=== PATIENT | female | born 1935 | race Caucasian/White ===

== ENCOUNTER → 2016-05-19 | Outpatient (CLI) | payer MEDICARE, OTHER ==
[~2016-05-19] MED LIST: AML5T PO; LOSA100T26 PO; SIMV10TA84 PO
[2016-05-19 12:32] LABS: Urine Bilirubin Negative (Negative); Urine Blood Negative /uL (Negative); Urine Color Yellow (Yellow); Urine Glucose Normal (Normal); Urine Ketone Negative (Negative); Urine Nitrite Negative (Negative); Urine Urobilinogen Normal (Negative)
[2016-05-19 12:34] LABS: Basophils # (auto) 0 uL; Basophils % (auto) 0.7 % (0.0-2.0); Eosinophils # (auto) 0.3 uL; Eosinophils % (auto) 5.2 % (0.0-7.0); Hematocrit 42.5 % (36.0-46.0); Hemoglobin 13.9 g/dL (12.2-16.2); Lymphocytes # (auto) 2.3 uL; Lymphocytes % (auto) 34.1 % (10.0-50.0); Mean Corpuscular Hemoglobin 29.1 pg (28.0-32.0); Mean Corpuscular Hgb Conc. 32.6 g/dL (32.0-36.0); Mean Corpuscular Volume 89.2 fL (80.0-100.0); Mean Platelet Volume 8.5 fL (7.4-10.4); Monocytes # (auto) 0.4 uL; Monocytes % (auto) 6.7 % (0.0-12.0); Neutrophils # (auto) 3.5 uL; Neutrophils % (auto) 53.3 % (37.0-80.0); Platelet Count (auto) 300 10^3/uL (140-450); Red Cell Distribution Width 12.4 % (11.6-16.0); White Blood Cell 6.6 10^3/uL (4.4-10.8)
[2016-05-19 14:02] LABS: Albumin 3.9 g/dL (3.4-5.0); BUN/Creatinine Ratio 19.1; Bilirubin, Direct 0.2 mg/dL (0-0.2); Bilirubin, Total 0.7 mg/dL (0.2-1.0); Calcium 9.1 mg/dL (8.5-10.1); Potassium 3.9 mmol/L (3.5-5.1); Total Protein 7.7 g/dL (6.4-8.2)
[2016-05-19 15:43] LABS: Cholesterol 157 mg/dL (<200); HDL Cholesterol 95 mg/dL (40-59); LDL Cholesterol 69 mg/dL (<100); Triglycerides 91 mg/dL (<150)
== END | disposition home or self-care (01) ==
LOC: LAB 07:53
PROVIDERS: ATTEND Internal Medicine Cardiovascular Disease
DX: I10 Essential (primary) hypertension (principal); E78.00 Pure hypercholesterolemia, unspecified; K74.1 Hepatic sclerosis; E03.9 Hypothyroidism, unspecified; D64.9 Anemia, unspecified; E55.9 Vitamin D deficiency, unspecified; N39.0 Urinary tract infection, site not specified; E11.9 Type 2 diabetes mellitus without complications
CPT/HCPCS: 36415; 80048; 80061; 80076; 81003; 82306; 83036; 84443; 85025

== ENCOUNTER → 2016-06-06 | Outpatient (CLI) | payer MEDICARE ==
[~2016-06-06] MED LIST changes: +IOHEXOL 350 MG/ML 100ML IJ ONE
[2016-06-06 12:00] VITALS: BP 136/68
[2016-06-06 12:30] VITALS: BP 146/64
== END | disposition home or self-care (01) ==
LOC: Rad HDHVI 11:51
PROVIDERS: ATTEND Internal Medicine Cardiovascular Disease
DX: I65.22 Occlusion and stenosis of left carotid artery (principal); M48.02 Spinal stenosis, cervical region; E04.1 Nontoxic single thyroid nodule; I65.21 Occlusion and stenosis of right carotid artery; I25.10 Atherosclerotic heart disease of native coronary artery without angina pectoris; I10 Essential (primary) hypertension; I49.5 Sick sinus syndrome; R42 Dizziness and giddiness; R51 Headache
CPT/HCPCS: 70496; 70498; G0463; Q9967

== ENCOUNTER → 2016-07-19 | Outpatient (CLI) | payer MEDICARE ==
[~2016-07-19] MED LIST changes: -IOHEXOL 350 MG/ML 100ML IJ ONE
== END | disposition home or self-care (01) ==
LOC: Rad HDHVI 08:29
PROVIDERS: ATTEND Internal Medicine Cardiovascular Disease
DX: I25.5 Ischemic cardiomyopathy (principal)
CPT/HCPCS: 93306

== ENCOUNTER → 2016-08-09 | Outpatient (CLI) | payer MEDICARE ==
[~2016-08-09] MED LIST changes: +ADENOSINE 62 MG in GIVE UN-DILUTED 0 ML IV ONE; +ADENOSINE 90 MG/30 ML INJ IV ONE
== END | disposition home or self-care (01) ==
LOC: Rad HDHVI 07:41
PROVIDERS: ATTEND Internal Medicine Cardiovascular Disease
DX: I10 Essential (primary) hypertension (principal); E78.00 Pure hypercholesterolemia, unspecified; E11.9 Type 2 diabetes mellitus without complications; Z95.0 Presence of cardiac pacemaker; Z95.1 Presence of aortocoronary bypass graft
CPT/HCPCS: 78452; 93005; 96374; 96375; A9500; J0153

== ENCOUNTER 2017-10-26 09:31 | Day surgery (SDC) | payer MEDICARE, BC ==
[~2017-10-26] VITALS: Ht 170.2 cm; Wt 74.4 kg
[~2017-10-26 09:31] MED LIST changes: -ADENOSINE 62 MG in GIVE UN-DILUTED 0 ML IV ONE; -ADENOSINE 90 MG/30 ML INJ IV ONE; -AML5T PO; +CYAN1TAB14 PO; +DOCU-80 PO; +FISH1CAP6 PO; -LOSA100T26 PO; +LOSA100T33 PO; +OME20T PO; +TRIA0.5C10 TOP
[2017-10-26] MEDS ORDERED: IOHEXOL 350 MG/ML 100ML IJ ONE (11:23)
[2017-10-26] MEDS ORDERED: LIDOCAINE 2% (LOCAL ANESTH.) PF 5ml SDV ONE (11:23)
[2017-10-26] MEDS ORDERED: MIDAZOLAM HCL 1MG/1ML-2 ML VIAL ONE (11:43)
[2017-10-26] MEDS ORDERED: fentaNYL CITRATE 100 MCG/2 ML VL ONE (11:43)
[2017-10-26] MEDS ORDERED: SODIUM CHL 0.9% 0 ML ONE (11:43)
[2017-10-26] MEDS ORDERED: ANGIOMAX 250 MG VIAL IV ONE (11:43)
== END 2017-10-26 14:55 | disposition home or self-care (01) ==
LOC: CATH 09:31
PROVIDERS: ATTEND Internal Medicine Cardiovascular Disease
DX: I25.10 Atherosclerotic heart disease of native coronary artery without angina pectoris (principal); R94.39 Abnormal result of other cardiovascular function study; I10 Essential (primary) hypertension; E78.5 Hyperlipidemia, unspecified; E03.9 Hypothyroidism, unspecified; D64.9 Anemia, unspecified; E11.9 Type 2 diabetes mellitus without complications; I70.0 Atherosclerosis of aorta; F10.99 Alcohol use, unspecified with unspecified alcohol-induced disorder; Z95.1 Presence of aortocoronary bypass graft; Z90.710 Acquired absence of both cervix and uterus; Z79.899 Other long term (current) drug therapy; Z88.0 Allergy status to penicillin; Z72.89 Other problems related to lifestyle; Z83.3 Family history of diabetes mellitus; Z82.61 Family history of arthritis; Z82.3 Family history of stroke; Z82.49 Family history of ischemic heart disease and other diseases of the circulatory system; Z95.0 Presence of cardiac pacemaker
CPT/HCPCS: 93459; C1760; C1894; J1644; J2250; J3010; J7030; Q9967; 99152; A6257; J2001

== ENCOUNTER 2018-04-03 10:35 | Inpatient (IN) | payer MEDICARE, BC | END 2018-04-07 13:35 | disposition home or self-care (01) | LOC: ER 10:35 → EAST 04-04 09:57 → OVERFLOW 22:05 | DX: K37 Unspecified appendicitis (principal); K65.4 Sclerosing mesenteritis; Q43.8 Other specified congenital malformations of intestine; K63.89 Other specified diseases of intestine ==

== ENCOUNTER → 2018-04-25 | Outpatient (CLI) | payer MEDICARE, BC ==
[~2018-04-25] MED LIST changes: -DOCU-80 PO; +IOHEXOL 350 MG/ML 100ML IJ ONE; -LOSA100T33 PO; -OME20T PO; +POLY335015 PO; +PSYL48.56 PO; +SIMV-13 PO; -SIMV10TA84 PO; -TRIA0.5C10 TOP
[2018-04-25 14:08] VITALS: BP 147/62
--- NOTE | 2018-04-25 14:08 | NUR ---
CHF PT TO CHF CLINIC FOR IV INSERT FOR CT ABD PELVIS DUE TO DIAPHRAGMATIC PRESSURE PAIN.
--- NOTE | 2018-04-25 14:15 | NUR ---
CHF IV insertion IV access obtained, via clean sterile technique by inserting 22 gauge catheter at after attempt(s). IV secured properly. No trauma to site. Patient tolerated procedure well.
[2018-04-25 15:29] VITALS: BP 166/65
--- NOTE | 2018-04-25 15:30 | NUR ---
CHF IV removal IV DC'd with sterile technique, catheter fully intact. Pressure dressing applied to site. Patient tolerated procedure well. INCREASE WATER INTAKE TODAY TO AID IN CONTRAST CLEARANCE. Discharged with aftercare instructions per MD. NOTE:
== END | disposition home or self-care (01) ==
LOC: Rad HDHVI 13:52
PROVIDERS: ATTEND Internal Medicine Cardiovascular Disease
DX: R10.9 Unspecified abdominal pain (principal); Z90.49 Acquired absence of other specified parts of digestive tract
CPT/HCPCS: 74177; 82565; G0463; Q9967

== ENCOUNTER → 2018-05-22 | Outpatient (CLI) | payer MEDICARE, BC ==
[~2018-05-22] MED LIST changes: -IOHEXOL 350 MG/ML 100ML IJ ONE
[2018-05-22 12:45] LABS: Basophils # (auto) 0.1 uL; Basophils % (auto) 0.8 % (0.0-2.0); Eosinophils # (auto) 0.1 uL; Eosinophils % (auto) 1.8 % (0.0-7.0); Hematocrit 46.9 % (36.0-46.0); Hemoglobin 15.5 g/dL (12.2-16.2); Lymphocytes % (auto) 25.9 % (10.0-50.0); Mean Corpuscular Hemoglobin 30.2 pg (28.0-32.0); Mean Corpuscular Volume 91.4 fL (80.0-100.0); Monocytes # (auto) 0.7 uL; Monocytes % (auto) 8.4 % (0.0-12.0); Neutrophils # (auto) 4.9 uL; Neutrophils % (auto) 63.1 % (37.0-80.0); Nucleated Red Blood Cells % 0.1 %; Platelet Count (auto) 245 10^3/uL (140-450); Red Blood Cells 5.13 10^6/uL (4.0-5.20); Red Cell Distribution Width 13.5 % (11.8-14.3); White Blood Cell 7.7 10^3/uL (4.4-10.8)
[2018-05-22 12:47] LABS: Urine Blood Negative /uL (Negative); Urine Specific Gravity 1.013 (1.001-1.035)
[2018-05-22 13:11] LABS: Potassium 4.2 mmol/L (3.5-5.1)
[2018-05-22 13:21] LABS: Albumin 3.9 g/dL (3.4-5.0); BUN/Creatinine Ratio 15.5; Bilirubin, Total 0.8 mg/dL (0.2-1.0); Calcium 8.9 mg/dL (8.5-10.1); Total Protein 7.6 g/dL (6.4-8.2)
[2018-05-22 13:22] LABS: Free T4 (Free Thyroxine) 1.24 ng/dL (0.89-1.76)
== END | disposition home or self-care (01) ==
LOC: LAB 07:57
PROVIDERS: ATTEND Internal Medicine Cardiovascular Disease
DX: N39.0 Urinary tract infection, site not specified (principal); E03.9 Hypothyroidism, unspecified; E11.9 Type 2 diabetes mellitus without complications; E55.9 Vitamin D deficiency, unspecified; D51.9 Vitamin B12 deficiency anemia, unspecified
CPT/HCPCS: 36415; 80053; 80061; 81003; 82306; 82607; 83036; 84439; 84443; 85025; 87086

== ENCOUNTER → 2018-10-03 | Outpatient (CLI) | payer MEDICARE, BC | END | disposition home or self-care (01) | LOC: Rad HDHVI 08:57 | PROVIDERS: ATTEND Internal Medicine Cardiovascular Disease | DX: J32.9 Chronic sinusitis, unspecified (principal); R51 Headache | CPT/HCPCS: 70450; 70486 ==

== ENCOUNTER → 2018-10-25 | Outpatient (CLI) | payer MEDICARE, BC ==
[~2018-10-25] VITALS: Ht 170.2 cm; Wt 71.2 kg
[~2018-10-25] MED LIST changes: +ADENOSINE 60 MG in GIVE UN-DILUTED 0 ML IV ONE; +ADENOSINE 90 MG/30 ML INJ IV ONE
== END | disposition home or self-care (01) ==
LOC: Rad HDHVI 09:17
PROVIDERS: ATTEND Internal Medicine Cardiovascular Disease
DX: G43.909 Migraine, unspecified, not intractable, without status migrainosus (principal); I25.10 Atherosclerotic heart disease of native coronary artery without angina pectoris; G45.9 Transient cerebral ischemic attack, unspecified; H93.19 Tinnitus, unspecified ear; Z95.1 Presence of aortocoronary bypass graft
CPT/HCPCS: 78452; 93005; 96374; 96375; A9500; J0153

== ENCOUNTER → 2019-05-20 | Outpatient (CLI) | payer MEDICARE, BC ==
[~2019-05-20] MED LIST changes: -ADENOSINE 60 MG in GIVE UN-DILUTED 0 ML IV ONE; -ADENOSINE 90 MG/30 ML INJ IV ONE; +MVI in SODIUM CHLORIDE 0.9% 1,010 ML ONE; +MVI in SODIUM CHLORIDE 0.9% 500 ML IVB ONE
[2019-05-20 11:30] VITALS: BP 138/72
--- NOTE | 2019-05-20 11:30 | NUR ---
CHF PT ARRIVED FROM BACK OFFICE WITH ORDERS TO TRANSFUSE MVI. PT A/O X 4 0 DISTRESS VSS
--- NOTE | 2019-05-20 11:50 | NUR ---
IV insertion IV access obtained, via clean sterile technique by inserting 22 gauge catheter at after attempt(s). IV secured properly. No trauma to site. Patient tolerated procedure well.
--- NOTE | 2019-05-20 14:20 | NUR ---
IV removal IV DC'd with sterile technique, catheter fully intact. Pressure dressing applied to site. Patient tolerated procedure well. Discharged with aftercare instructions per MD. NOTE:
[2019-05-20 14:23] VITALS: BP 158/74
--- NOTE | 2019-05-20 14:23 | NUR ---
Discharge Instructions See e-MAR for any mediations given with this visit. Patient education given on disease process. Patient verbalized understanding. Previous labs reviewed. Patient discharged in stable condition with after care instructions and follow up appointment. MEDICATIONS MVI IV X [id number]
--- NOTE | 2019-05-21 17:21 | NUR ---
PT CALLED NOT FEELING WELL, BELIEVES SHE IS STILL FEELING FATIGUED SOME PAIN IN ABDOMEN AND LIGHT NAUSEA. HAD PT TAKE BLOOD PRESSURE, STATES 211/105 AND 206/100. PT HAS NO BLOOD PRESSURE MEDICATIONS AT HOME OR ANXIETY MEDICATIONS. ADVISED AND PT TO CHANGE BATTERIES IN BP CUFF AND IF PRESSURES ARE STILL HIGH TO GO TO THE EMERGENCY ROOM. RELUCTANT TO GO TO EMERGENCY ROOM BECAUSE OF ALL THE SICK PEOPLE ADVISED TO GO TO FIRE DEPARTMENT THAT IS CLOSE BY IF HE DOES NOT WANT TO GO TO ER. FOLLOW UP IN AM IN CHF CLINIC AT 830. MIMI VERBALIZED UNDERSTANDING
== END | disposition home or self-care (01) ==
LOC: CHF HDHVI 11:32
PROVIDERS: ATTEND Internal Medicine Cardiovascular Disease
DX: E86.0 Dehydration (principal); R53.83 Other fatigue; R06.02 Shortness of breath; Z79.899 Other long term (current) drug therapy
CPT/HCPCS: 96365; 96366; G0463; J3411; J3475

== ENCOUNTER → 2019-05-22 | Outpatient (CLI) | payer MEDICARE, BC ==
[2019-05-22] VITALS (7 sets, daily range): BP systolic 122–161; BP diastolic 55–73
--- NOTE | 2019-05-22 08:30 | NUR ---
PATIENT IN CLINIC FOR FATIGUE AND SOB. PATIENT CALLED YESTERDAY ABOUT HIGH BLOOD PRESSURES, CHECKED BP ON ARRIVAL, BP WNL.
--- NOTE | 2019-05-22 09:00 | NUR ---
IV insertion IV access obtained, via clean sterile technique by inserting 22 gauge catheter at RFA after 2 attempt(s). IV secured properly. No trauma to site. Patient tolerated procedure well.
--- NOTE | 2019-05-22 09:30 | NUR ---
WAITING FOR PHARMACY TO DELIVER MVI.
[2019-05-22 10:24] LABS: Basophils # (auto) 0.1 uL; Basophils % (auto) 0.8 % (0.0-2.0); Eosinophils # (auto) 0.1 uL; Eosinophils % (auto) 1.3 % (0.0-7.0); Hematocrit 45.6 % (36.0-46.0); Hemoglobin 15.3 g/dL (12.2-16.2); Lymphocytes # (auto) 1.3 uL; Lymphocytes % (auto) 18.4 % (10.0-50.0); Mean Corpuscular Hemoglobin 29.8 pg (28.0-32.0); Mean Corpuscular Hgb Conc. 33.6 g/dL (32.0-36.0); Mean Corpuscular Volume 88.7 fL (80.0-100.0); Monocytes # (auto) 0.5 uL; Monocytes % (auto) 7.5 % (0.0-12.0); Neutrophils # (auto) 5.1 uL; Platelet Count (auto) 233 10^3/uL (140-450); Red Blood Cells 5.14 10^6/uL (4.0-5.20); Red Cell Distribution Width 13.2 % (11.8-14.3); White Blood Cell 7.1 10^3/uL (4.4-10.8)
[2019-05-22 11:49] LABS: BUN/Creatinine Ratio 12.7; Calcium 9.2 mg/dL (8.5-10.1); Magnesium 2.4 mg/dL (1.6-2.6); Potassium 4.1 mmol/L (3.5-5.1)
--- NOTE | 2019-05-22 13:30 | NUR ---
CHF CLINIC Discharge Instructions See e-MAR for any mediations given with this visit. Patient education given on disease process. Patient verbalized understanding. Previous labs reviewed. Patient discharged in stable condition with after care instructions and follow up appointment. NOTE MVI [id number] ADMIN BY DANIA TRINIDAD. BLOOD DRAWN DURING IV START AND RESULTS REVIEWED WITH PATIENT.
== END | disposition home or self-care (01) ==
LOC: CHF HDHVI 08:45
PROVIDERS: ATTEND Internal Medicine Cardiovascular Disease
DX: R53.83 Other fatigue (principal); R53.1 Weakness; K90.9 Intestinal malabsorption, unspecified; D64.9 Anemia, unspecified; R06.02 Shortness of breath; Z79.899 Other long term (current) drug therapy
CPT/HCPCS: 36415; 80048; 82306; 82607; 83036; 83735; 85025; 96365; 96366; G0463; J3411; J3475

== ENCOUNTER → 2019-07-29 | Outpatient (CLI) | payer MEDICARE, BC ==
[~2019-07-29] MED LIST changes: -MVI in SODIUM CHLORIDE 0.9% 1,010 ML ONE; -MVI in SODIUM CHLORIDE 0.9% 500 ML IVB ONE
== END | disposition home or self-care (01) ==
LOC: Rad HDHVI 09:02
PROVIDERS: ATTEND Internal Medicine Cardiovascular Disease
DX: R60.0 Localized edema (principal)
CPT/HCPCS: 93925; 93970

== ENCOUNTER → 2019-10-14 | Outpatient (CLI) | payer MEDICARE, BC | END | disposition home or self-care (01) | LOC: LAB 08:44 | PROVIDERS: ATTEND Internal Medicine Cardiovascular Disease | DX: R94.4 Abnormal results of kidney function studies (principal) | CPT/HCPCS: 36415; 82565 ==

== ENCOUNTER → 2019-10-15 | Outpatient (CLI) | payer MEDICARE, BC ==
[~2019-10-15] MED LIST changes: +IOHEXOL 350 MG/ML 100ML IJ ONE
[2019-10-15 09:10] VITALS: BP 138/67
[2019-10-15 09:39] VITALS: BP 135/61
== END | disposition home or self-care (01) ==
LOC: Rad HDHVI 08:57
PROVIDERS: ATTEND Internal Medicine Cardiovascular Disease
DX: I25.9 Chronic ischemic heart disease, unspecified (principal); R51 Headache
CPT/HCPCS: 70450; G0463; Q9967

== ENCOUNTER → 2019-11-06 | Outpatient (CLI) | payer MEDICARE, BC ==
[2019-11-06 15:15] VITALS: BP 149/70
--- NOTE | 2019-11-06 15:15 | NUR ---
CLINIC PT ARRIVED TO THE CHF CLINIC FOR LABS AND CT HEAD /SOFT TISSUE NECK. C/O HEADACHE AND HEAD PRESSURE. A/OX4, AMBULATORY. BREATHING IS EVEN AND UNLABORED.
--- NOTE | 2019-11-06 15:20 | NUR ---
IV insertion IV access obtained, via clean sterile technique by inserting 20 gauge catheter at RAC after 1 attempt(s). IV secured properly. No trauma to site. Patient tolerated procedure well. LABS DRAWN AND SENT NOTE INSERTED BY JUANJO TRINIDAD
[2019-11-06 15:52] VITALS: BP 149/70
--- NOTE | 2019-11-06 16:06 | NUR ---
IV removal IV DC'd with sterile technique, catheter fully intact. Pressure dressing applied to site. Patient tolerated procedure well. Discharged with aftercare instructions per MD. NOTE: REMOVED BY DANIA TRINIDAD
[2019-11-06 16:10] VITALS: BP 154/66
--- NOTE | 2019-11-06 16:10 | NUR ---
Discharge Instructions See e-MAR for any mediations given with this visit. Patient education given on disease process. Patient verbalized understanding. Previous labs reviewed. Patient discharged in stable condition with after care instructions and follow up appointment.
== END | disposition home or self-care (01) ==
LOC: Rad HDHVI 14:58
PROVIDERS: ATTEND Internal Medicine Cardiovascular Disease
DX: M47.812 Spondylosis without myelopathy or radiculopathy, cervical region (principal); M48.02 Spinal stenosis, cervical region; I65.23 Occlusion and stenosis of bilateral carotid arteries; E04.1 Nontoxic single thyroid nodule; M25.78 Osteophyte, vertebrae; R94.4 Abnormal results of kidney function studies
CPT/HCPCS: 36415; 70491; 82565; G0463; Q9967

== ENCOUNTER → 2019-12-23 | Outpatient (CLI) | payer MEDICARE, BC ==
[~2019-12-23] MED LIST changes: -IOHEXOL 350 MG/ML 100ML IJ ONE
== END | disposition home or self-care (01) ==
LOC: Rad HDHVI 13:19
PROVIDERS: ATTEND Internal Medicine Cardiovascular Disease
DX: M16.12 Unilateral primary osteoarthritis, left hip (principal); M48.061 Spinal stenosis, lumbar region without neurogenic claudication; M79.605 Pain in left leg; M47.816 Spondylosis without myelopathy or radiculopathy, lumbar region; M25.78 Osteophyte, vertebrae; M25.552 Pain in left hip
CPT/HCPCS: 72131; 73700

== ENCOUNTER 2020-01-30 11:21 | Emergency (ER) | payer MEDICARE, OTHER ==
[~2020-01-30] VITALS: Ht 172.7 cm; Wt 63.5 kg
[2020-01-30] MEDS ORDERED: SODIUM CHLORIDE 0.9% 1,000 ML IV ONE (11:45)
[2020-01-30 12:12] LABS: Basophils # (auto) 0 10 ^3/uL (0-0.2); Basophils % (auto) 0.3 % (0.0-2.0); Eosinophils # (auto) 0.1 10 ^3/uL (0-0.8); Eosinophils % (auto) 0.5 % (0.0-7.0); Hematocrit 45.6 % (36.0-46.0); Hemoglobin 15.7 g/dL (12.2-16.2); Lymphocytes # (auto) 0.9 10 ^3/uL (0.4-5.4); Lymphocytes % (auto) 8.3 % (10.0-50.0); Mean Corpuscular Hemoglobin 30.3 pg (28.0-32.0); Mean Corpuscular Hgb Conc. 34.4 g/dL (32.0-36.0); Mean Corpuscular Volume 88.1 fL (80.0-100.0); Monocytes # (auto) 0.5 10 ^3/uL (0-1.3); Monocytes % (auto) 4.8 % (0.0-12.0); Neutrophils # (auto) 9.7 10 ^3/uL (1.6-8.6); Neutrophils % (auto) 86.1 % (37.0-80.0); Platelet Count (auto) 224 10^3/uL (140-450); Red Blood Cells 5.18 10^6/uL (4.0-5.20); Red Cell Distribution Width 12.8 % (11.8-14.3); White Blood Cell 11.3 10^3/uL (4.4-10.8)
[2020-01-30 12:24] LABS: Albumin 4.4 g/dL (3.4-5.0); Anion Gap 7 (5-15); Blood Urea Nitrogen 26 mg/dL (7-18); Calcium 9.1 mg/dL (8.5-10.1); Carbon Dioxide 26 mmol/L (21-32); Chloride 101 mmol/L (98-107); Glucose 139 mg/dL (74-106); Potassium 4.3 mmol/L (3.5-5.1); Sodium 134 mmol/L (136-145)
[2020-01-30 12:31] LABS: Alanine Aminotransferase 22 U/L (13-56); Alkaline Phosphatase 99 U/L (45-117); Aspartate Aminotransferase 16 U/L (15-37); BUN/Creatinine Ratio 21.5; Bilirubin, Total 0.8 mg/dL (0.2-1.0); GFR African American 55 mL/min; GFR Non-African American 45 mL/min; Total Protein 7.8 g/dL (6.4-8.2)
[2020-01-30 18:46] VITALS: BP 168/76
[2020-01-30 19:00] LABS: Urine Bacteria FEW /hpf (None Seen); Urine Blood Negative /uL (Negative); Urine Specific Gravity 1.006 (1.001-1.035); Urine WBC 1 /hpf (0 - 5)
== END 2020-01-30 18:54 | disposition home or self-care (01) ==
LOC: EDBD 11:21 → ER 11:21
DX: R55 Syncope and collapse (principal); N39.0 Urinary tract infection, site not specified; E78.5 Hyperlipidemia, unspecified; I10 Essential (primary) hypertension; Z88.0 Allergy status to penicillin; Z95.1 Presence of aortocoronary bypass graft
CPT/HCPCS: 36415; 70450; 71045; 80053; 81001; 83036; 84484; 85025; 93005; 96360; 96361; 99285; J7030

== ENCOUNTER → 2020-02-03 | Outpatient (CLI) | payer MEDICARE, BC | END | disposition home or self-care (01) | LOC: LAB 10:29 | PROVIDERS: ATTEND Internal Medicine Cardiovascular Disease | DX: E11.9 Type 2 diabetes mellitus without complications (principal) | CPT/HCPCS: 36415; 83036 ==

== ENCOUNTER → 2020-02-07 | Outpatient (CLI) | payer MEDICARE, BC | END | disposition home or self-care (01) | LOC: Rad HDHVI 09:57 | PROVIDERS: ATTEND Internal Medicine Cardiovascular Disease | DX: I25.10 Atherosclerotic heart disease of native coronary artery without angina pectoris (principal); I50.33 Acute on chronic diastolic (congestive) heart failure; E78.5 Hyperlipidemia, unspecified | CPT/HCPCS: 93306 ==

== ENCOUNTER → 2020-02-13 | Outpatient (CLI) | payer MEDICARE, BC ==
[~2020-02-13] VITALS: Ht 170.2 cm; Wt 63.0 kg
[~2020-02-13] MED LIST changes: +ADENOSINE 53 MG in GIVE UN-DILUTED 0 ML IV ONE; +ADENOSINE 90 MG/30 ML INJ IV ONE
== END | disposition home or self-care (01) ==
LOC: Rad HDHVI 09:35
PROVIDERS: ATTEND Internal Medicine Cardiovascular Disease
DX: I25.10 Atherosclerotic heart disease of native coronary artery without angina pectoris (principal); I10 Essential (primary) hypertension; E11.9 Type 2 diabetes mellitus without complications; E78.00 Pure hypercholesterolemia, unspecified; Z95.0 Presence of cardiac pacemaker; Z95.1 Presence of aortocoronary bypass graft; Z82.49 Family history of ischemic heart disease and other diseases of the circulatory system
CPT/HCPCS: 78452; 93005; 96374; 96375; A9500; J0153

== ENCOUNTER → 2020-05-14 | Outpatient (CLI) | payer MEDICARE, BC ==
[~2020-05-14] MED LIST changes: -ADENOSINE 53 MG in GIVE UN-DILUTED 0 ML IV ONE; -ADENOSINE 90 MG/30 ML INJ IV ONE
[2020-05-14 10:00] VITALS: BP 123/53
[2020-05-14 10:52] VITALS: BP 118/49
[2020-05-14 11:49] LABS: Urine Blood Negative /uL (Negative); Urine Specific Gravity 1.013 (1.001-1.035)
[2020-05-14 11:57] LABS: Potassium 4.1 mmol/L (3.5-5.1)
[2020-05-14 12:06] LABS: Albumin 3.8 g/dL (3.4-5.0); BUN/Creatinine Ratio 15.6; Bilirubin, Total 0.6 mg/dL (0.2-1.0); Magnesium 2.4 mg/dL (1.6-2.6); Total Protein 7.8 g/dL (6.4-8.2)
[2020-05-14 12:53] LABS: Basophils # (auto) 0 10 ^3/uL (0-0.2); Basophils % (auto) 0.4 % (0.0-2.0); Eosinophils # (auto) 0.1 10 ^3/uL (0-0.8); Eosinophils % (auto) 1.1 % (0.0-7.0); Hematocrit 43.7 % (36.0-46.0); Hemoglobin 14.9 g/dL (12.2-16.2); Lymphocytes # (auto) 1.5 10 ^3/uL (0.4-5.4); Lymphocytes % (auto) 16.8 % (10.0-50.0); Mean Corpuscular Hemoglobin 29.9 pg (28.0-32.0); Mean Corpuscular Volume 87.8 fL (80.0-100.0); Monocytes # (auto) 0.7 10 ^3/uL (0-1.3); Monocytes % (auto) 8.1 % (0.0-12.0); Neutrophils # (auto) 6.5 10 ^3/uL (1.6-8.6); Neutrophils % (auto) 73.6 % (37.0-80.0); Nucleated Red Blood Cells % 0.1 %; Platelet Count (auto) 253 10^3/uL (140-450); Red Blood Cells 4.97 10^6/uL (4.0-5.20); Red Cell Distribution Width 13.3 % (11.8-14.3); White Blood Cell 8.8 10^3/uL (4.4-10.8)
== END | disposition home or self-care (01) ==
LOC: CHF HDHVI 10:17
PROVIDERS: ATTEND Internal Medicine Cardiovascular Disease
DX: I10 Essential (primary) hypertension (principal); D64.9 Anemia, unspecified; E83.40 Disorders of magnesium metabolism, unspecified; N39.0 Urinary tract infection, site not specified
CPT/HCPCS: 36415; 80053; 81003; 83735; 85025; G0463

== ENCOUNTER → 2020-05-15 | Outpatient (CLI) | payer MEDICARE, BC | END | disposition home or self-care (01) | LOC: CHF HDHVI 11:55 | PROVIDERS: ATTEND Internal Medicine Cardiovascular Disease | DX: I67.2 Cerebral atherosclerosis (principal); I67.82 Cerebral ischemia; G31.89 Other specified degenerative diseases of nervous system; G93.89 Other specified disorders of brain; M50.33 Other cervical disc degeneration, cervicothoracic region; M48.02 Spinal stenosis, cervical region; M47.813 Spondylosis without myelopathy or radiculopathy, cervicothoracic region; M25.78 Osteophyte, vertebrae; M46.03 Spinal enthesopathy, cervicothoracic region; R51.9 Headache, unspecified | CPT/HCPCS: 70450; 72125 ==

== ENCOUNTER → 2020-06-18 | Day surgery (SDC) | payer MEDICARE, BC ==
[~2020-06-18] VITALS: Ht 170.2 cm; Wt 60.3 kg
[~2020-06-18] MED LIST changes: +ACET250T3 PO; +ANGIOMAX 250 MG VIAL IV ONE; +ASCO500C49 PO; +CHOL20007 PO; +CLOP75TA70 PO; -CYAN1TAB14 PO; -FISH1CAP6 PO; +GLYCOPYRROLATE 0.2 MG/ML 1ML VIAL ONE; +IOHEXOL 350 MG/ML 100ML IJ ONE; +LATA0.0019 OP; +LIDOCAINE 2%HCL (LOCAL ANESTH.) INJ 20ML MDV ONE; +NITROGLYCERIN 0.4MG/DOSE SPRAY 4.9GM ONE; +OMEG100078 PO; +PHENYLEPHRINE HCL 10 MG/ML VL ONE; -POLY335015 PO; +POLY33504 PO; -PSYL48.56 PO
== END | disposition home or self-care (01) ==
LOC: CATH 06:53
PROVIDERS: ATTEND Internal Medicine Cardiovascular Disease
DX: I65.21 Occlusion and stenosis of right carotid artery (principal); I25.798 Atherosclerosis of other coronary artery bypass graft(s) with other forms of angina pectoris; I10 Essential (primary) hypertension; E78.5 Hyperlipidemia, unspecified; Z20.822 Contact with and (suspected) exposure to COVID-19; Z98.890 Other specified postprocedural states; Z79.899 Other long term (current) drug therapy; Z95.5 Presence of coronary angioplasty implant and graft; Z90.710 Acquired absence of both cervix and uterus; Z88.0 Allergy status to penicillin
CPT/HCPCS: 36415; 37215; 84132; C1725; C1760; C1769; C1876; C1887; C1894; J0583; J1644; Q9967; U0003; 99152; 99153

== ENCOUNTER → 2020-07-10 | Outpatient (CLI) | payer MEDICARE, BC ==
[~2020-07-10] MED LIST changes: -ANGIOMAX 250 MG VIAL IV ONE; -GLYCOPYRROLATE 0.2 MG/ML 1ML VIAL ONE; -IOHEXOL 350 MG/ML 100ML IJ ONE; -LIDOCAINE 2%HCL (LOCAL ANESTH.) INJ 20ML MDV ONE; -NITROGLYCERIN 0.4MG/DOSE SPRAY 4.9GM ONE; -PHENYLEPHRINE HCL 10 MG/ML VL ONE
[2020-07-10 11:56] LABS: Calcium 9.8 mg/dL (8.5-10.1); Potassium 5.2 mmol/L (3.5-5.1)
[2020-07-10 11:58] LABS: BUN/Creatinine Ratio 18.5
== END | disposition home or self-care (01) ==
LOC: LAB 08:32
PROVIDERS: ATTEND Internal Medicine Cardiovascular Disease
DX: I10 Essential (primary) hypertension (principal)
CPT/HCPCS: 36415; 80048

== ENCOUNTER → 2021-10-05 | Outpatient (CLI) | payer MEDICARE, BC ==
[~2021-10-05] MED LIST changes: +BACL10TA PO; +PANT40T PO; +ROSU20TA14 PO; +TURM500C3 PO
[2021-10-05 09:14] VITALS: BP 150/70
[2021-10-05 09:28] VITALS: BP 148/69
[2021-10-05 12:20] LABS: Basophils # (auto) 0.1 10 ^3/uL (0-0.2); Basophils % (auto) 0.7 % (0.0-2.0); Eosinophils # (auto) 0.1 10 ^3/uL (0-0.8); Eosinophils % (auto) 1.5 % (0.0-7.0); Hemoglobin 15.2 g/dL (12.2-16.2); Mean Corpuscular Hemoglobin 28.8 pg (28.0-32.0); Mean Corpuscular Volume 87.3 fL (80.0-100.0); Monocytes # (auto) 0.9 10 ^3/uL (0-1.3); Monocytes % (auto) 9.5 % (0.0-12.0); Neutrophils # (auto) 6.4 10 ^3/uL (1.6-8.6); Neutrophils % (auto) 67.3 % (37.0-80.0); Nucleated Red Blood Cells % 0.1 %; Red Blood Cells 5.27 10^6/uL (4.0-5.20); Red Cell Distribution Width 12.5 % (11.8-14.3); White Blood Cell 9.5 10^3/uL (4.4-10.8)
[2021-10-05 12:32] LABS: INR 0.99 (0.9-1.15); Partial Thromboplastin Time 27.2 sec (23.6-33.0)
[2021-10-05 12:51] LABS: Potassium 4.5 mmol/L (3.5-5.1)
[2021-10-05 12:55] LABS: BUN/Creatinine Ratio 16.3; Calcium 9.3 mg/dL (8.5-10.1)
== END | disposition home or self-care (01) ==
LOC: Rad HDHVI 08:51
PROVIDERS: ATTEND Internal Medicine Cardiovascular Disease
DX: Z01.818 Encounter for other preprocedural examination (principal); R94.31 Abnormal electrocardiogram [ECG] [EKG]; I34.0 Nonrheumatic mitral (valve) insufficiency; M47.814 Spondylosis without myelopathy or radiculopathy, thoracic region; J98.4 Other disorders of lung
CPT/HCPCS: 36415; 71046; 80048; 85025; 85610; 85730; 93005; C9803; G0463

== ENCOUNTER 2021-10-07 06:56 | Day surgery (SDC) | payer MEDICARE, BC ==
[~2021-10-07] VITALS: Ht 170.2 cm; Wt 60.3 kg
[~2021-10-07 06:56] MED LIST changes: -SIMV-13 PO
[2021-10-07] MEDS ORDERED: ANGIOMAX 250 MG VIAL IV ONE (10:10)
[2021-10-07] MEDS ORDERED: MIDAZOLAM HCL 2MG/2ML 2ml VIAL (1mg/ml) ONE (10:10)
[2021-10-07] MEDS ORDERED: fentaNYL CITRATE 100 MCG/2 ML VL ONE (10:10)
[2021-10-07] MEDS ORDERED: SODIUM CHL 0.9% 0 ML ONE (10:11)
[2021-10-07] MEDS ORDERED: LIDOCAINE 2%HCL (LOCAL ANESTH.) INJ 10ml MDV ONE (10:11)
[2021-10-07] MEDS ORDERED: ONDANSETRON HCL 4 MG/2 ML VIAL ONE (10:12)
== END 2021-10-07 13:13 | disposition home or self-care (01) ==
LOC: CATH 06:56
PROVIDERS: ATTEND Internal Medicine Cardiovascular Disease
DX: R94.39 Abnormal result of other cardiovascular function study (principal); I25.10 Atherosclerotic heart disease of native coronary artery without angina pectoris; I10 Essential (primary) hypertension; E11.9 Type 2 diabetes mellitus without complications; E78.5 Hyperlipidemia, unspecified; I49.5 Sick sinus syndrome; I34.0 Nonrheumatic mitral (valve) insufficiency; I35.1 Nonrheumatic aortic (valve) insufficiency; Z20.822 Contact with and (suspected) exposure to COVID-19; Z82.49 Family history of ischemic heart disease and other diseases of the circulatory system; Z95.5 Presence of coronary angioplasty implant and graft; Z88.0 Allergy status to penicillin; Z83.3 Family history of diabetes mellitus; Z83.438 Family history of other disorder of lipoprotein metabolism and other lipidemia; Z82.61 Family history of arthritis
CPT/HCPCS: 93459; C1760; C1894; J1644; J2001; J2250; J2405; J3010; J7030; U0003; 33533; 93458; 99152; 99153

== ENCOUNTER → 2022-02-21 | Outpatient (CLI) | payer MEDICARE, BC | END | disposition home or self-care (01) | LOC: Rad HDHVI 08:09 | PROVIDERS: ATTEND Internal Medicine Cardiovascular Disease | DX: I08.8 Other rheumatic multiple valve diseases (principal); I10 Essential (primary) hypertension; E78.5 Hyperlipidemia, unspecified; Z95.0 Presence of cardiac pacemaker | CPT/HCPCS: 93306 ==

== ENCOUNTER → 2022-09-05 | Outpatient (CLI) | payer MEDICARE, BC ==
[~2022-09-05] MED LIST changes: +ACET250T20 PO; -ACET250T3 PO; -LATA0.0019 OP; +LATA0.008 OP; +OMEG-20 PO; -OMEG100078 PO
== END | disposition home or self-care (01) ==
LOC: HDHVI->DVH 12:28
PROVIDERS: ATTEND Internal Medicine Cardiovascular Disease
DX: Z48.89 Encounter for other specified surgical aftercare (principal)
CPT/HCPCS: 74018

== ENCOUNTER → 2022-09-13 | Outpatient (CLI) | payer MEDICARE, BC | END | disposition home or self-care (01) | LOC: Rad HDHVI 16:00 | PROVIDERS: ATTEND Internal Medicine Cardiovascular Disease | DX: I10 Essential (primary) hypertension (principal); E78.5 Hyperlipidemia, unspecified | CPT/HCPCS: 93306 ==

== ENCOUNTER → 2024-01-10 | Outpatient (CLI) | payer MEDICARE, BC | END | disposition home or self-care (01) | LOC: Rad HDHVI 10:41 | PROVIDERS: ATTEND Internal Medicine Cardiovascular Disease | DX: M51.369 Other intervertebral disc degeneration, lumbar region without mention of lumbar back pain or lower extremity pain (principal); M47.816 Spondylosis without myelopathy or radiculopathy, lumbar region; M48.07 Spinal stenosis, lumbosacral region; M25.78 Osteophyte, vertebrae | CPT/HCPCS: 72131 ==

== ENCOUNTER 2024-09-13 08:58 | Outpatient (CLI) | payer MEDICARE, BC ==
[2024-09-13 09:08] VITALS: BP 123/60; PULSE 70; RESP 16; O2SAT 97
[2024-09-13] MEDS ORDERED: IOHEXOL 350 MG/ML 100ML IJ ONE (09:14)
[2024-09-13] MEDS ORDERED: READI-CAT 2 (BARIUM SULF)(VANILLA SMOOTHIE) 450ML ONE (09:14)
[2024-09-13 10:16] VITALS: BP 153/69; PULSE 69; RESP 16; O2SAT 97
--- NOTE | 2024-09-13 11:59 | DVH ---
CLINICAL INFORMATION: 89 years old, Female; HEADACHES. TECHNIQUE: Axial imaging was obtained through the brain without contrast. Coronal and sagittal reform atted images were obtained, reviewed, and stored. Images were reviewed in brain and bone windows. Al l CT scans at this medical facility are performed using dose modulation techniques as appropriate to a performed exam including the following: Automated exposure control was utilized; adjustment of the MA and/or KV according to patient size; and use of iterative reconstruction technique. CTDIvol = 51.8 4 mGy DLP = 829.51 mGy-cm COMPARISON: HEAD WITHOUT CONTRAST on DOS: 05/15/20 FINDINGS: There is no acute intracranial hemorrhage. No mass effect or midline shift. Scattered areas of hypoattenuation are seen in the periventricular and subcortical white matter, which are nonspecif ic but most likely sequelae of small vessel ischemic disease.The ventricles and sulci are within norm al limits in size for age. Basal cisterns are patent. The calvarium is unremarkable. Paranasal sinus es and mastoid air cells are clear. IMPRESSION: No CT evidence of acute intracranial abnormality.
--- NOTE | 2024-09-13 12:13 | DVH ---
Indication: WEIGHT LOSS Technique: CT axial images of the abdomen and pelvis are obtained with intravenous contrast. Coronal and sagittal reformats were obtained. Radiation Dose Information: CTDI volume is 5.36 mGy. Dose-length product is 243.72 mGy*cm Comparison: None FINDINGS: Bases demonstrate atelectasis. Adrenal glands, spleen, pancreas unremarkable. Cholecystectomy. No enhancing hepatic lesion. Kidneys demonstrate no hydronephrosis. Stomach moderately distended. Small bowel loops are moderately distended. Focal bowel wall thickening and mucosal hyperemia of the hepatic flexure of the colon. No secondary signs for appendicitis. Mode rate to large volume stool within the colon Abdominal aortic atherosclerotic disease. Bladder is partially distended. No free pelvic fluid. No in guinal lymphadenopathy. Severe degenerate changes left hip. Moderate degenerate changes right hip. Moderate to severe thorac olumbar degenerative disc disease. Interbody disc spacer at L4-5. Posterior decompression at 4. IMPRESSION: 1. Short segment mucosal hyperemia and bowel wall thickening involving the hepatic flexure of the col on. Differential considerations include colitis / inflammatory bowel disease, colonic mass/neoplasm. Recommend GI consultation for colonoscopy to characterize, especially given the history of weight lo ss. 2. Cholecystectomy 3. Atherosclerotic disease. 4. Moderate to large volume stool within the colon. 5. Other findings as described.
== END 2024-09-13 17:00 | disposition home or self-care (01) ==
LOC: Rad HDHVI 08:58
PROVIDERS: ATTEND Internal Medicine Cardiovascular Disease
DX: K59.89 Other specified functional intestinal disorders (principal); I70.90 Unspecified atherosclerosis; J98.11 Atelectasis; Z90.49 Acquired absence of other specified parts of digestive tract; K31.89 Other diseases of stomach and duodenum; I70.0 Atherosclerosis of aorta; N32.89 Other specified disorders of bladder; M16.12 Unilateral primary osteoarthritis, left hip; M16.11 Unilateral primary osteoarthritis, right hip; M51.35 Other intervertebral disc degeneration, thoracolumbar region
CPT/HCPCS: 70450; 74177; G0463; Q9967

== ENCOUNTER 2024-09-24 08:00 | Outpatient (CLI) | payer MEDICARE, BC | END 2024-09-24 17:00 | disposition home or self-care (01) | LOC: Rad HDHVI 08:00 | PROVIDERS: ATTEND Internal Medicine Cardiovascular Disease | DX: I08.8 Other rheumatic multiple valve diseases (principal); I11.0 Hypertensive heart disease with heart failure; I50.33 Acute on chronic diastolic (congestive) heart failure | CPT/HCPCS: 93306 ==

== ENCOUNTER → 2024-10-02 | Outpatient (CLI) | payer MEDICARE, BC | END | disposition home or self-care (01) | LOC: Rad HDHVI 13:29 | PROVIDERS: ATTEND Internal Medicine Cardiovascular Disease | DX: I10 Essential (primary) hypertension (principal) | CPT/HCPCS: 93880 ==

== ENCOUNTER 2024-10-21 12:24 | Outpatient (CLI) | payer MEDICARE, BC ==
[2024-10-21 12:24] VITALS: BP 148/67; PULSE 72; RESP 16; O2SAT 98
[~2024-10-21 12:24] MED LIST changes: +MVI in SODIUM CHLORIDE 0.9% 500 ML IVB ONE
[2024-10-21] MEDS: MULTIPLE VIT 10 ML IV ONE (12:37)
[2024-10-21] MEDS: MVI in SODIUM CHLORIDE 0.9% 500 ML IVB ONE (12:40)
[2024-10-21 16:08] VITALS: BP 168/72; PULSE 71; RESP 16; O2SAT 98
== END 2024-10-21 17:00 | disposition home or self-care (01) ==
LOC: CHF HDHVI 12:24
PROVIDERS: ATTEND Internal Medicine Cardiovascular Disease
DX: E86.0 Dehydration (principal); I11.0 Hypertensive heart disease with heart failure; I50.33 Acute on chronic diastolic (congestive) heart failure; I25.10 Atherosclerotic heart disease of native coronary artery without angina pectoris; E78.00 Pure hypercholesterolemia, unspecified; Z95.1 Presence of aortocoronary bypass graft; Z95.0 Presence of cardiac pacemaker; Z90.49 Acquired absence of other specified parts of digestive tract
CPT/HCPCS: 96365; 96366; G0463; J7040; 96360; 96361